=== PATIENT | female | born 1985 | race Caucasian/White ===

== ENCOUNTER 2021-05-01 08:58 | Outpatient (REF) | payer BC, SELFPAY ==
[2021-05-01 11:41] LABS: Hematocrit 45.9 % (37-47); Mean Corpuscular HGB Conc 32.7 g/dl (31.0-35.0); Mean Corpuscular Hemoglobin 27.6 pg (27.0-33.0); Mean Corpuscular Volume 84.5 fL (80-98); Mean Platelet Volume 9.9 fL (9.4-12.3); Platelet Count 181 X10*3/uL (160-400); Red Blood Count 5.43 X10*6/uL (4.20-5.50); Red Cell Distribution Width 13.8 % (11.0-16.0); White Blood Count 6.2 X10*3/uL (4.8-10.8)
[2021-05-01 11:53] LABS: Alanine Aminotransferase 48 U/L (0-31); Albumin Level 4.6 g/dL (3.5-5.0); Alkaline Phosphatase 74 U/L (39-117); Anion Gap 13 (12-20); Aspartate Amino Transferase 32 U/L (5-31); Bilirubin Total 0.5 mg/dL (0.0-1.0); Blood Urea Nitrogen 12 mg/dL (9-16); Calcium 9.4 mg/dL (8.4-10.2); Carbon Dioxide 24 mmol/L (22-29); Chloride 107 mmol/L (96-108); Estimated Glomerular Filt Rate > 60; Glucose Random 92 mg/dL (60-115); Potassium 4.4 mmol/L (3.3-5.1); Sodium 140 mmol/L (135-145); Total Protein 7.2 g/dL (6.5-8.0)
[2021-05-01 12:01] LABS: Estimated Average Glucose 97 mg/dL
== END 2021-05-01 08:59 | disposition home or self-care (01) ==
LOC: HO.HMGCLDS 08:58
PROVIDERS: PCP Internal Medicine; Visit Provider Internal Medicine
DX: Z00.00 Encounter for general adult medical examination without abnormal findings (principal); I10 Essential (primary) hypertension
CPT/HCPCS: 36415; 80053; 83036; 85027

== ENCOUNTER 2021-10-22 07:55 | Outpatient (REF) | payer BC, SELFPAY ==
[2021-10-22 09:16] LABS: MANUAL DIFF FLAG NO
[2021-10-22 09:22] LABS: Basophils Percent Auto 0.5 % (0-2); Eosinophils Absolute Auto 0.4 X10*3/uL (0.0-0.4); Eosinophils Percent Auto 5.5 % (0-4); Hematocrit 45.9 % (37.0-47.0); Hemoglobin 15.3 g/dl (12.0-16.0); Imm Gran Abs Auto 0.02 X10*3/uL (0.00-0.03); Imm Gran Pct Auto 0.3 % (0.0-0.4); Lymphocytes Absolute Auto 1.5 X10*3/uL (1.2-4.9); Lymphocytes Percent Auto 19.2 % (20-40); Mean Corpuscular HGB Conc 33.3 g/dl (31.0-35.0); Mean Corpuscular Hemoglobin 28.6 pg (27.0-33.0); Mean Corpuscular Volume 85.8 fL (80.0-98.0); Mean Platelet Volume 9.2 fL (9.4-12.3); Monocytes Absolute Auto 0.5 X10*3/uL (0.1-1.2); Monocytes Percent Auto 6.7 % (2-11); Neutrophils Absolute Auto 5.1 x10*3/uL (2.0-8.3); Neutrophils Percent Auto 67.8 % (45-73); Platelet Count 188 X10*3/uL (160-400); Red Blood Count 5.35 X10*6/uL (4.20-5.50); White Blood Count 7.6 X10*3/uL (4.8-10.8)
[2021-10-22 09:54] LABS: Alanine Aminotransferase 17 U/L (0-31); Albumin Level 4.3 g/dL (3.5-5.0); Alkaline Phosphatase 67 U/L (39-117); Anion Gap 13 (12-20); Aspartate Amino Transferase 17 U/L (5-31); Bilirubin Total 0.6 mg/dL (0.0-1.0); Blood Urea Nitrogen 11 mg/dL (9-16); C Reactive Protein 0.33 mg/dL (< or = 0.50); Calcium 9.7 mg/dL (8.4-10.2); Carbon Dioxide 26 mmol/L (22-29); Chloride 105 mmol/L (96-108); Estimated Glomerular Filt Rate > 60; Glucose Random 96 mg/dL (60-115); Potassium 4.6 mmol/L (3.3-5.1); Sodium 139 mmol/L (135-145)
[2021-10-28 23:01] LABS: Gliadin Deamidated IgA Ab <1.0 U/mL; Gliadin Deamidated IgG Ab <1.0 U/mL; Transglutaminase Ab IgG <1.0 U/mL; Transglutaminase IgA <1.0 U/mL
== END 2021-10-22 07:56 | disposition home or self-care (01) ==
LOC: HO.LAB 07:55
PROVIDERS: PCP Internal Medicine; Referring Provider Internal Medicine; Visit Provider Nurse Practitioner
DX: R19.7 Diarrhea, unspecified (principal); K62.5 Hemorrhage of anus and rectum
CPT/HCPCS: 36415; 80053; 85025; 86003; 86140; 86258; 86364

== ENCOUNTER → 2021-11-19 08:32 | Outpatient (BNVA) | payer BC, SELFPAY | PROVIDERS: PCP Internal Medicine; Referring Provider Internal Medicine; Visit Provider Nurse Practitioner | DX: R19.7 Diarrhea, unspecified (principal) ==

== ENCOUNTER 2022-03-01 09:43 | Day surgery (SDC) | payer BC, SELFPAY ==
[2022-02-23 11:26] VITALS: BMI 35.5
--- NOTE | 2022-02-26 10:02 | HO.ANESPROP2 ---
Documented by User: Allie Romero NP 02/26/22 10:03 HPI - Anesthesia Eval Consult details Narrative: 36yo F for Colonoscopy PMFSH Active Problems Active Problems: All Active Problems (Updated 10/22/21 @ 08:28 by LANRE Herrera) Diarrhea (Acute) Family history of colon cancer in father (Acute) Rectal bleeding (Acute) Overweight (Acute) Gestational diabetes (Acute) Annual physical exam (Acute) Essential hypertension (Acute) Past Medical History Medical History Annual physical exam Anxiety Asthma Gestational diabetes Migraine Overweight Rectal bleeding Rhinitis Surgical History Surgical History H/O section History of esophagogastroduodenoscopy (EGD) Social History Social History Household Members Other:: , 3 SONS(6,3, 2 MTHS) 04/2021 Housing: House Are you a primary assistant child care teacher to a significant other at home: No Patient Tobacco Use Status: Never used Tobacco Second Hand Smoke Exposure: No Use of substances other than those prescribed or required for medical reasons: No Have you been hit, kicked, punched, or otherwise hurt by someone within the past year? If so, by whom?: No Are you DNR?: No Advance Directives: No Advance Directives Information Provided: Yes Recently lost weight without trying: No Eating poorly because of decreased appetite: No Nutrition Risks: No Nutritional Risk Patient : No Current occupational status: employed Meds Allergies Allergy/AdvReac Type Severity Reaction Status Date / Time No Known Allergies Allergy Verified 11/19/21 08:42 Home Medications Medication Instructions Recorded Confirmed Last Taken Type triamcinolone acetonide 0.1 % appl topical 11/19/21 Unknown History topical cream Exam Exam Date and Time: February 26, 2022 1002 Height,Weight and Vital Signs: Height 5 ft 7 in Weight 102.965 kg Pertinent Lab Results Pertinent Lab Results: Laboratory Tests 10/22/21 10/22/21 09:13 09:13 WBC 7.6 Hgb 15.3 Hct 45.9 Plt Count 188 Sodium 139 Potassium 4.6 Chloride 105 Carbon Dioxide 26 BUN 11 Creatinine 0.79 Assessment and Plan Assessment Anesthesia Assessment: Chart Reviewed Documented by User: Andria Garcia MD 03/01/22 11:16 [facility] Past Medical History Medical History Annual physical exam Anxiety Asthma Gestational diabetes Migraine Overweight Rectal bleeding Rhinitis Surgical History Surgical History H/O section History of esophagogastroduodenoscopy (EGD) History of Problems with Anesthesia: No Social History Social History Household Members Other:: , 3 SONS(6,3, 2 MTHS) 04/2021 Housing: House Are you a primary assistant child care teacher to a significant other at home: No Patient Tobacco Use Status: Never used Tobacco Second Hand Smoke Exposure: No Use of substances other than those prescribed or required for medical reasons: No Have you been hit, kicked, punched, or otherwise hurt by someone within the past year? If so, by whom?: No Are you DNR?: No Advance Directives: No Advance Directives Information Provided: Yes Recently lost weight without trying: No Eating poorly because of decreased appetite: No Nutrition Risks: No Nutritional Risk Patient : No Current occupational status: employed Meds Allergies Allergy/AdvReac Type Severity Reaction Status Date / Time No Known Allergies Allergy Verified 11/19/21 08:42 Home Medications Medication Instructions Recorded Confirmed Last Taken Type triamcinolone acetonide 0.1 % appl topical 11/19/21 Unknown History topical cream Exam Airway Mallampati Class: II TM Dist: >3cm Neck ROM: Full Loose/Missing/Broken Teeth: No Heart: RRR Lungs: CTA Assessment and Plan Assessment Anesthesia Assessment: Anesthesia Plan Discussed Final Anesthetic Review History of Problems with Anesthesia: No NPO: Yes ASA Class: II Final Preanesthetic Review: Meds/Allgs Chart Reviewed, Consent Obtained/Reviewed and Anes Risks/Benef Reviewed Patient Risk: Low Procedure Risk: Low Anesthetic Plan Anesthetic Plan: MAC: Disposition: Standard PACU
--- NOTE | 2022-03-01 10:10 | MHC.SHP ---
Pre-Procedural Eval Section A Date of Service: 03/01/22 The patient is an INPATIENT: No The History & Physical has been completed within 30 days and I have reviewed it.: No Section B Chief Complaint: rectal bleeding,diarrhea, Fhx malignant neoplasm Details of Present Illness: iBS mixed, FH of colon cancer, rectal bleeding Relevant Family History (Specify if Yes): Yes Relevant Social History: None Present Medications: see Short Stay Collaborative assessment Medical History: Significant History (Anxiety Asthma Gestational diabetes Migraine Overweight Rectal bleeding Rhinitis) History of Previous Operations: Relevant previous surgery/procedure and date(s) (H/O section History of esophagogastroduodenoscopy (EGD)) Allergies: Allergies Allergy/AdvReac Type Severity Reaction Status Date / Time No Known Allergies Allergy Verified 11/19/21 08:42 Review of Systems Sugical H&P ROS: Negative: Constitution, Cardiovascular and Respiratory and Yes, Specify: Gastrointestinal (diarrhea) Exam Surgical H&P Exam: Normal: Heart, Normal: Lungs, Normal: Extremities and Normal: Abdomen Plan Diagnosis/Plan: Unchanged I have reviewed the history and physical and performed a pertinent physical examination on my patient. No changes have occurred unless specified.
[2022-03-01 10:29] LABS: UPreg QC Valid YES; Urine Pregnancy NEGATIVE (NEGATIVE)
[2022-03-01 10:35] VITALS: BP 123/89; PULSE 70; RESP 18; TEMP 36.3; O2SAT 98; BMI 35.5
[2022-03-01] MEDS: Lactated Ringers 1,000 ML 100 ML IVCONT (10:42)
--- NOTE | 2022-03-01 12:12 | PM.OP ---
Brief Operative Note Date of Service: 03/01/22 Pre-op diagnosis: chronic diarrhea, rectal bleeding, family history of colon cancer (Dad at age 55 Yrs) Post-op diagnosis: other ( colon polyp, diverticulosis, hemorrhoids) Procedure: COLONOSCOPY TILL CECUM WITH BIOPSIES, SNARE POLYPECTOMY, SUBMUCOSAL INJECTION AND HEMOCLIP PLACEMENT Consent: Indications for the procedure and potential complications of bleeding, perforation, reaction to medications and missed diagnosis were discussed with the patient and informed consent was obtained. Instrument: Olympus PCF H 190 L variable stiffness pediatric colonoscope Monitoring: Vital signs and clinical assessment, intermittent blood pressure monitoring, continuous EKG monitoring, Pulse oximetry and Carbon Dioxide monitoring were done throughout the procedure. Colon withdrawl time was 34 minutes. Procedure: The patient was placed in the left lateral decubitis position and pre-procedure medications were administered. After a digital rectal examination of the ano-rectum, the video colonoscope was inserted into the rectum and advanced through the colon to the cecum. The colonoscope was slowly withdrawn in a retrograde panoramic fashion and the colon mucosa was carefully examined including a retroflexed view of the rectum. Findings and interventions are described below. Procedure Difficulty: Without difficulty Findings: Terminal Ileum: Distal 5 cm was examined and appeared normal Cecum: Normal Ascending Colon: Normal Transverse Colon: Normal Descending Colon: Normal Sigmoid Colon: A 2 cms X 0.5 cms elongated flat polyp at 50 cms - raised with 5 cc of Orise solution and removed with a hot snare. Marigins of polypectomy site were treated with cautery using the snare tip. Polypectomy site was closed with 2 hemoclips and marked by Maylin ink. Moderate diverticulosis Rectum: Normal Ano-rectum: Small internal hemorrhoids Colon preparation: Good After some irrigation Impression and Post Procedure Diagnosis: Colonoscopy Findings: One medium sized polyp removed. random biopsies were obtained from the right and left colon to check for microscopic colitis Moderate diverticulosis seen in the sigmoid colon Small non-bleeding hemorrhoids on retroflexed exam. Plan: Await pathology results Patient has an appointment on 03/16/22 in the GI Clinic with Ciara Hahn NP. Repeat Colonoscopy interval based on path results - in 1 years if polyp is adenomatous and 5 years if polyps is hyperplastic (due to positive FH). Above findings were reviewed with the patient and colon polyps and diverticulosis handouts were given in the discharge area Surgeon: Mariposa Shields MD Anesthesia: MAC Was an Safety Associate used for this Procedure?: Yes Safety Associate: Margoth Martel Estimated blood loss (mL): 0 Pathology: other (A. random bxs right colon, R/O microscopic colitis B. sigmoid polyp @ 50 cm C. left colon bxs, R/O microscopic colitis) Condition: stable Disposition: PACU
[2022-03-01 12:13] VITALS: BP 119/54; PULSE 78; RESP 16; TEMP 37.1; O2SAT 96
--- NOTE | 2022-03-01 12:16 | P.OP_ITS ---
Operative Note Operative Note Date of Service: 03/01/22 Narrative: Pre-op diagnosis: chronic diarrhea, rectal bleeding, family history of colon cancer (Dad at age 55 Yrs) Post-op diagnosis:?other ( colon polyp, diverticulosis, hemorrhoids) Procedure: COLONOSCOPY TILL CECUM WITH BIOPSIES, SNARE POLYPECTOMY, SUBMUCOSAL INJECTION AND HEMOCLIP PLACEMENT Consent: Indications for the procedure and potential complications of bleeding, perforation, reaction to medications and missed diagnosis were discussed with the patient and informed consent was obtained. Instrument: Olympus PCF H 190 L variable stiffness pediatric colonoscope Monitoring: Vital signs and clinical assessment, intermittent blood pressure monitoring, continuous EKG monitoring, Pulse oximetry and Carbon Dioxide monitoring were done throughout the procedure. Colon withdrawl time was 34 minutes. Procedure: The patient was placed in the left lateral decubitis position and pre-procedure medications were administered. After a digital rectal examination of the ano-rectum, the video colonoscope was inserted into the rectum and advanced through the colon to the cecum. The colonoscope was slowly withdrawn in a retrograde panoramic fashion and the colon mucosa was carefully examined including a retroflexed view of the rectum. Findings and interventions are described below. Procedure Difficulty: Without difficulty Findings: Terminal Ileum: Distal? 5 cm was examined and appeared normal Cecum:? Normal Ascending Colon:? Normal Transverse Colon:? Normal Descending Colon:? Normal Sigmoid Colon:? A 2 cms X 0.5 cms elongated flat polyp at 50 cms - raised with 5 cc of Orise solution and removed with a hot snare.? Marigins of polypectomy site? were treated with cautery using the snare tip.? ? Polypectomy site was closed with 2 hemoclips and marked by Maylin ink.? Moderate diverticulosis Rectum:? Normal Ano-rectum:? Small internal hemorrhoids Colon preparation:? Good After some irrigation Impression and Post Procedure Diagnosis: Colonoscopy Findings: One medium sized polyp removed. ?random biopsies were obtained from the right and left colon to check for microscopic colitis Moderate diverticulosis seen in the sigmoid colon Small non-bleeding hemorrhoids on retroflexed exam. Plan: Await pathology results Patient has an appointment on 03/16/22 in the GI Clinic with Ciara Hahn NP. Repeat Colonoscopy interval based on path results - in 1 years if polyp is adenomatous and 5 years if polyps is hyperplastic (due to positive FH). Above findings were reviewed with the patient and colon polyps and diverticulosis handouts were given in the discharge area Surgeon: Mariposa Shields MD Anesthesia:?MAC Was an Peritoneal Dialysis Registered Nurse used for this Procedure?:?Yes Peritoneal Dialysis Registered Nurse:?Margoth Martel Estimated blood loss (mL):?0 Pathology:?other (A. random bxs right colon, R/O microscopic colitis? B.? sigmoid polyp @ 50 cm? C. left colon bxs, R/O microscopic colitis) Condition:?stable Disposition:?PACU
[2022-03-01 12:28] VITALS: BP 121/98; PULSE 84; RESP 16; TEMP 37.1; O2SAT 96
== END 2022-03-01 13:04 | disposition home or self-care (01) ==
PROVIDERS: Nurse Practitioner; PCP Family Medicine; Visit Provider Internal Medicine Gastroenterology
PROC: 0DJD8ZZ Inspection of Lower Intestinal Tract, Via Natural or Artificial Opening Endoscopic (ICD-10-PCS; CPT 45378; principal; 2022-03-01 11:20)
DX: K62.5 Hemorrhage of anus and rectum (principal); Z80.0 Family history of malignant neoplasm of digestive organs; K63.5 Polyp of colon; K58.2 Mixed irritable bowel syndrome; K57.30 Diverticulosis of large intestine without perforation or abscess without bleeding; K64.8 Other hemorrhoids; F41.1 Generalized anxiety disorder; J45.909 Unspecified asthma, uncomplicated; J31.0 Chronic rhinitis; G43.909 Migraine, unspecified, not intractable, without status migrainosus; E66.3 Overweight; Z68.35 Body mass index [BMI] 35.0-35.9, adult; Z79.899 Other long term (current) drug therapy
CPT/HCPCS: 45385; 45380; 45381; 81025; 88305